=== PATIENT | female | born 1985 | race Caucasian/White ===

== ENCOUNTER 2017-09-09 06:59 | Inpatient (IN) | payer MEDICAID ==
[~2017-09-09] VITALS: Ht 154.9 cm; Wt 100.0 kg
[2017-09-09] MEDS ORDERED: LACTATED RINGERS 1,000 ML IV SCH ×3 (07:00→10:21)
[2017-09-09] MEDS ORDERED: LACTATED RINGERS 1,000 ML IVBOLUS ONE (07:00)
[2017-09-09] MEDS ORDERED: OXYTOCIN 30U/ 0.9% NaCL 500ML 500 ML IV SCH (07:00)
[2017-09-09 07:12] VITALS: BP 123/77
[2017-09-09] MEDS ORDERED: CEFAZOLIN 1,000 MG ONE (07:27)
[2017-09-09] MEDS ORDERED: KETOROLAC 30 MG/1 ML ONE (07:27)
[2017-09-09] MEDS ORDERED: OXYTOCIN 10 UNITS/ML, 1ML ONE (07:27)
[2017-09-09] MEDS ORDERED: EPHEDRINE 50 MG/ML, 1ML ONE (07:28)
[2017-09-09 07:30] LABS: BASOPHILS # (AUTO) 0.13 x10^3/uL (0-0.1); BASOPHILS % (AUTO) 1 % (0-1); EOSINOPHILS # (AUTO) 0.11 x10^3/uL (0-0.4); EOSINOPHILS % (AUTO) 1 % (1-7); LYMPHOCYTES # (AUTO) 2.72 x10^3/uL (1-3.4); LYMPHOCYTES % (AUTO) 23 % (22-44); MD NO; MEAN CORPUSCULAR HEMOGLOBIN 27.6 pg (27.0-34.8); MEAN CORPUSCULAR HGB CONC 32.8 g/dL (32.4-35.8); MEAN CORPUSCULAR VOLUME 84.1 fL (80-100); MEAN PLATELET VOLUME 7.8 fL (7.4-10.4); MONOCYTES # (AUTO) 0.76 x10^3/uL (0.2-0.8); MONOCYTES % (AUTO) 7 % (2-9); NEUTROPHILS # (AUTO) 7.88 x10^3/uL (1.8-6.8); NEUTROPHILS % (AUTO) 68 % (42-75); PLATELET COUNT 257 x10^3/uL (130-400); RED BLOOD COUNT 4.11 x10^6/uL (3.82-5.3); RED CELL DISTRIBUTION WIDTH 14.7 % (9.6-15.2)
[2017-09-09] MEDS ORDERED: NEWBORN KIT ONE (07:36)
[2017-09-09] MEDS ORDERED: SODIUM CITRATE/CITRIC ACID 30 ML UDC ONE (07:38)
[2017-09-09] MEDS ORDERED: METOCLOPRAMIDE 5 MG/ML, 2ML ONE (07:38)
[2017-09-09] MEDS ORDERED: OXYTOCIN 30U/ 0.9% NaCL 500ML 500 ML ONE (07:38)
[2017-09-09] MEDS ORDERED: FENTANYL PF 100 MCG/2ML ONE (08:41)
[2017-09-09] MEDS: OXYTOCIN 30U/ 0.9% NaCL 500ML 500 ML IV SCH ×2 (10:21→20:21)
[2017-09-09] MEDS ORDERED: PROMETHAZINE 25 MG/ML, 1ML IV PRN (10:30)
[2017-09-09] MEDS ORDERED: FENTANYL PF 100 MCG/2ML IV PRN (10:30)
[2017-09-09] MEDS ORDERED: MORPHINE SULFATE 4 MG/ML, 1ML IVPush PRN (10:30)
[2017-09-09] MEDS ORDERED: EPHEDRINE 50 MG/ML, 1ML IVPush PRN (10:30)
[2017-09-09] MEDS ORDERED: ONDANSETRON ODT 8 MG PO PRN (10:30)
[2017-09-09] MEDS ORDERED: LABETALOL 5MG/ML, 20ML IV PRN (10:30)
[2017-09-09] MEDS ORDERED: OXYcodone 5 MG/5 ML ORAL.SOL UDC PO PRN (10:30)
[2017-09-09] MEDS ORDERED: MISOPROSTOL 200 MCG TABLET PR PRN (10:30)
[2017-09-09] MEDS ORDERED: OXYcodone/APAP 5/325MG TABLET PO PRN (10:30)
[2017-09-09] MEDS ORDERED: ONDANSETRON 2MG/ML, 2ML IV PRN (10:30)
[2017-09-09] MEDS: LACTATED RINGERS 1,000 ML IV SCH ×2 (11:09→20:21)
[2017-09-09] MEDS ORDERED: OXYcodone/APAP 5/325MG TABLET ONE (11:32)
[2017-09-09 12:30] VITALS: BP 114/72
[2017-09-09] MEDS: morphine SULFATE 10 MG/ML, 1ML IVPush PRN ×2 (13:48→19:49)
[2017-09-09 16:38] VITALS: BP 116/68
[2017-09-09] MEDS: KETOROLAC 30 MG/1 ML IV SCH ×2 (16:44→22:47)
[2017-09-09] MEDS: OXYcodone IR 5MG TABLET PO PRN ×2 (16:44→21:34)
[2017-09-09 21:30] VITALS: BP 115/71
[2017-09-10 00:55] VITALS: BP 115/72
[2017-09-10] MEDS: OXYcodone IR 5MG TABLET PO PRN ×5 (03:40→19:45)
[2017-09-10 05:00] VITALS: BP 108/68
[2017-09-10] MEDS: KETOROLAC 30 MG/1 ML IV SCH ×3 (05:02→17:48)
[2017-09-10] MEDS: LACTATED RINGERS 1,000 ML IV SCH ×2 (06:21→16:21)
[2017-09-10] MEDS: OXYTOCIN 30U/ 0.9% NaCL 500ML 500 ML IV SCH ×2 (06:21→16:21)
[2017-09-10] MEDS: PRENATAL VIT/IRON/FA 1 EACH TABLET PO SCH (08:01)
[2017-09-10] MEDS: DOCUSATE 100 MG CAPSULE PO PRN ×2 (08:01→19:45)
[2017-09-10 08:05] VITALS: BP 111/67
[2017-09-10] MEDS: ACETAMINOPHEN 325 MG TABLET PO PRN (15:55)
[2017-09-10 19:15] VITALS: BP 110/72
[2017-09-11] MEDS: ACETAMINOPHEN 325 MG TABLET PO PRN (00:12)
[2017-09-11] MEDS: OXYcodone IR 5MG TABLET PO PRN ×5 (00:12→21:39)
[2017-09-11] MEDS: KETOROLAC 30 MG/1 ML IV SCH ×3 (00:12→12:07)
[2017-09-11] MEDS: LACTATED RINGERS 1,000 ML IV SCH ×3 (01:53→22:21)
[2017-09-11] MEDS: OXYTOCIN 30U/ 0.9% NaCL 500ML 500 ML IV SCH ×3 (01:54→22:21)
[2017-09-11 07:50] VITALS: BP 112/68
[2017-09-11] MEDS: DOCUSATE 100 MG CAPSULE PO PRN ×2 (11:01→20:31)
[2017-09-11] MEDS: PRENATAL VIT/IRON/FA 1 EACH TABLET PO SCH (11:01)
[2017-09-11] MEDS ORDERED: KETOROLAC 30 MG/1 ML ONE (12:04)
[2017-09-11 12:50] LABS: BASOPHILS # (AUTO) 0.13 x10^3/uL (0-0.1); BASOPHILS % (AUTO) 1 % (0-1); EOSINOPHILS # (AUTO) 0.12 x10^3/uL (0-0.4); EOSINOPHILS % (AUTO) 1 % (1-7); LYMPHOCYTES # (AUTO) 2.14 x10^3/uL (1-3.4); LYMPHOCYTES % (AUTO) 19 % (22-44); MD NO; MEAN CORPUSCULAR HEMOGLOBIN 28.6 pg (27.0-34.8); MEAN CORPUSCULAR HGB CONC 33.7 g/dL (32.4-35.8); MEAN CORPUSCULAR VOLUME 84.8 fL (80-100); MEAN PLATELET VOLUME 8.1 fL (7.4-10.4); MONOCYTES % (AUTO) 5 % (2-9); NEUTROPHILS # (AUTO) 8.43 x10^3/uL (1.8-6.8); NEUTROPHILS % (AUTO) 74 % (42-75); PLATELET COUNT 261 x10^3/uL (130-400); RED BLOOD COUNT 3.51 x10^6/uL (3.82-5.3); RED CELL DISTRIBUTION WIDTH 15.5 % (9.6-15.2)
[2017-09-11 19:30] VITALS: BP 125/85
[2017-09-11] MEDS: IBUPROFEN 600 MG TABLET PO PRN (20:31)
[2017-09-12] MEDS: IBUPROFEN 600 MG TABLET PO PRN ×2 (02:14→12:13)
[2017-09-12] MEDS: OXYcodone IR 5MG TABLET PO PRN ×2 (02:14→12:14)
[2017-09-12 08:00] VITALS: BP 123/79
[2017-09-12] MEDS: DOCUSATE 100 MG CAPSULE PO PRN (08:12)
[2017-09-12] MEDS: PRENATAL VIT/IRON/FA 1 EACH TABLET PO SCH (08:12)
[2017-09-12] MEDS: OXYTOCIN 30U/ 0.9% NaCL 500ML 500 ML IV SCH (08:21)
[2017-09-12] MEDS: LACTATED RINGERS 1,000 ML IV SCH (08:21)
[2017-09-12] MEDS ORDERED: OXYC-302 PO (11:22)
[2017-09-12] MEDS ORDERED: IBUP-1222 PO (11:22)
[2017-09-12] MEDS ORDERED: DIPH,PERTUSS(ACELL),TET VAC/PF NC IM-VACC ONE ×2 (11:30→11:32)
== END 2017-09-12 15:35 | disposition home or self-care (01) | DRG 766 ==
LOC: LDIP 06:59 → 2NW 12:25
PROVIDERS: ADMIT Obstetrics & Gynecology; ATTEND Obstetrics & Gynecology
PROC: 10D00Z1 Extraction of Products of Conception, Low, Open Approach (ICD-10-PCS; principal; 2017-09-09)
PROC: 0UB70ZZ Excision of Bilateral Fallopian Tubes, Open Approach (ICD-10-PCS; 2017-09-09)
PROC: 3E0234Z Introduction of Serum, Toxoid and Vaccine into Muscle, Percutaneous Approach (ICD-10-PCS; 2017-09-12)
DX: O99.52 Diseases of the respiratory system complicating childbirth (principal); F32.9 Major depressive disorder, single episode, unspecified; O99.344 Other mental disorders complicating childbirth; J45.909 Unspecified asthma, uncomplicated; O34.211 Maternal care for low transverse scar from previous cesarean delivery; O99.354 Diseases of the nervous system complicating childbirth; G43.909 Migraine, unspecified, not intractable, without status migrainosus; Z90.89 Acquired absence of other organs; Z37.0 Single live birth; Z30.2 Encounter for sterilization; Z3A.39 39 weeks gestation of pregnancy; Z88.0 Allergy status to penicillin; Z23 Encounter for immunization
CPT/HCPCS: 36415; 85025; 86850; 86900; 88302; 90715; J0690; J1885; J3010; J2270; J2590; J7120

== ENCOUNTER 2018-01-02 04:39 | Emergency (ER) | payer MEDICAID ==
[~2018-01-02] VITALS: Ht 157.5 cm; Wt 95.9 kg
[~2018-01-02 04:39] MED LIST: IBUP-1222 PO; OXYC-302 PO
[2018-01-02] MEDS ORDERED: KETOROLAC 30 MG/1 ML ONE (05:09)
[2018-01-02 05:16] VITALS: BP 128/73
[2018-01-02] MEDS ORDERED: KETOROLAC 30 MG/1 ML IM ONE (05:30)
== END 2018-01-02 05:21 | disposition home or self-care (01) ==
LOC: ED 05:15
DX: S90.861A Insect bite (nonvenomous), right foot, initial encounter (principal); W57.XXXA Bitten or stung by nonvenomous insect and other nonvenomous arthropods, initial encounter; Y93.89 Activity, other specified; Y99.8 Other external cause status; Y92.009 Unspecified place in unspecified non-institutional (private) residence as the place of occurrence of the external cause; F17.200 Nicotine dependence, unspecified, uncomplicated; F32.9 Major depressive disorder, single episode, unspecified
CPT/HCPCS: 96372; 99283; J1885; Q0177